=== PATIENT | female | born 1995 | race African-American/Black ===

== ENCOUNTER 2016-03-02 09:26 | Emergency (ER) | payer MEDICAID ==
[~2016-03-02] VITALS: Ht 170.2 cm; Wt 64.0 kg
[~2016-03-02 09:26] MED LIST: NORC5TAB PO; PROM25TA5 PO
[2016-03-02 09:27] VITALS: BP 118/62; PULSE 74; RESP 15; TEMP 98; O2SAT 96
[2016-03-02 09:38] VITALS: PULSE 74; RESP 17; TEMP 98.2
--- NOTE | 2016-03-02 09:57 | PD ---
HPI Chief Complaint: Abdominal Pain Time Seen by Provider: 09:31 Travel History International Travel<30 days: No Contact w/Intl Traveler<30days: No Traveled to known affect area: No History of Present Illness HPI The patient was seen and examined in the presence of the nurse. This patient complains of abdominal pain. Duration is 2 weeks. Severity is moderate. Location is epigastrium. Comes come and go and spells last 15 minutes and resolved without alleviating factors. Denies vomiting or diarrhea. No fever. No abdominal surgeries PFSH Past Medical History Developmental Delay: No Diminished Hearing: No Kidney Stones: Yes (2016) Musculoskeletal: Yes (scoliosis) Respiratory: Yes (ASTHMA A YOUTH ) Immunizations Current: Yes ?: Not LMP: 02/26/16 : 1 Para: 1 Past Surgical History Section: Yes Gynecologic Surgery: Yes (C SECTION ) Social History Alcohol Use: No Tobacco Use: No Substance Use: No Allergies-Medications (Allergen,Severity, Reaction): Coded Allergies: No Known Allergies (Verified , 03/02/16) Reported Meds & Prescriptions Reported Meds & Active Scripts Active No Active Prescriptions or Reported Medications Review of Systems General / Constitutional: No: Fever Eyes: No: Visual changes HENT: No: Headaches Cardiovascular: No: Chest Pain or Discomfort Respiratory: No: Shortness of Breath Gastrointestinal: Positive: Abdominal Pain Genitourinary: No: Dysuria Musculoskeletal: No: Pain Skin: No Rash Neurologic: No: Weakness Psychiatric: No: Depression Endocrine: No: Polydipsia Hematologic/Lymphatic: No: Easy Bruising Physical Exam Narrative GENERAL: Well-nourished, well-developed patient in no apparent distress. SKIN: Warm and dry. HEAD: Atraumatic. Normocephalic. EYES: Pupils equal and round. No scleral icterus. No injection or drainage. ENT: No nasal bleeding or discharge. Mucous membranes pink and moist. NECK: Trachea midline. No JVD. CARDIOVASCULAR: Regular rate and rhythm. No murmur appreciated. RESPIRATORY: No accessory muscle use. Clear to auscultation. Breath sounds equal bilaterally. GASTROINTESTINAL: Abdomen soft, non-tender, nondistended. Hepatic and splenic margins not palpable. MUSCULOSKELETAL: No obvious deformities. No clubbing. No cyanosis. No edema. NEUROLOGICAL: Awake and alert. No obvious cranial nerve deficits. Motor grossly within normal limits. Normal speech. PSYCHIATRIC: Appropriate mood and affect; insight and judgment normal. Data Data Last Documented VS Vital Signs Date Time Temp Pulse Resp B/P Pulse Ox O2 Delivery O2 Flow Rate FiO2 03/02/16 09:38 98.2 74 17 03/02/16 09:27 118/62 96 Orders Iv Access Insert/Monitor (03/02/16 09:54) Complete Blood Count With Diff (03/02/16 09:54) Comprehensive Metabolic Panel (03/02/16 09:54) Lipase (03/02/16 09:54) Ed Urine Pregnancytest Poc (03/02/16 09:54) Labs Laboratory Tests Test 03/02/16 09:00 White Blood Count 9.4 TH/MM3 Red Blood Count 4.83 MIL/MM3 Hemoglobin 11.3 GM/DL Hematocrit 33.7 % Mean Corpuscular Volume 69.6 FL Mean Corpuscular Hemoglobin 23.3 PG Mean Corpuscular Hemoglobin 33.5 % Concent Red Cell Distribution Width 16.5 % Platelet Count 378 TH/MM3 Mean Platelet Volume 7.3 FL Neutrophils (%) (Auto) 66.5 % Lymphocytes (%) (Auto) 24.1 % Monocytes (%) (Auto) 7.1 % Eosinophils (%) (Auto) 1.5 % Basophils (%) (Auto) 0.8 % Neutrophils # (Auto) 6.3 TH/MM3 Lymphocytes # (Auto) 2.3 TH/MM3 Monocytes # (Auto) 0.7 TH/MM3 Eosinophils # (Auto) 0.1 TH/MM3 Basophils # (Auto) 0.1 TH/MM3 CBC Comment AUTO DIFF Differential Comment AUTO DIFF CONFIRMED Platelet Estimate NORMAL Platelet Morphology Comment NORMAL Sodium Level 139 MEQ/L Potassium Level 3.6 MEQ/L Chloride Level 106 MEQ/L Carbon Dioxide Level 25.4 MEQ/L Anion Gap 8 MEQ/L Blood Urea Nitrogen 10 MG/DL Creatinine 0.64 MG/DL Estimat Glomerular Filtration 142 ML/MIN Rate Random Glucose 89 MG/DL Calcium Level 8.6 MG/DL Total Bilirubin 0.4 MG/DL Aspartate Amino Transf 13 U/L (AST/SGOT) Alanine Aminotransferase 19 U/L (ALT/SGPT) Alkaline Phosphatase 58 U/L Total Protein 8.2 GM/DL Albumin 3.9 GM/DL Lipase 89 U/L [facility] Medical Decision Making Medical Screen Exam Complete: Yes Emergency Medical Condition: Yes Medical Record Reviewed: Yes Differential Diagnosis Differential diagnosis includes pancreatitis, biliary colic, hepatitis, GERD, peptic ulcer disease. Narrative Course I have reviewed the patient's electronic medical record. Frequent visitor to the ER for minor complaints IV placed CBC shows mild anemia but normal white count Metabolic profile is normal LFTs are normal Lipase is normal Urine is negative Abdomen is soft and benign and nontender Recommended dietary modification and avoidance of certain things and trial of acid blocking medicine either Zantac or Prilosec The patient was advised to follow up with their physician and return if they worsen. Diagnosis Primary Impression: Epigastric pain Additional Instructions: The patient was advised to follow up with their physician and return if they worsen. Med/Other Pt SpecificInfo: Other Scripts No Active Prescriptions or Reported Meds Disposition: 01 DISCHARGE HOME Condition: Stable Kevon Nieto MD Mar 02, 2016 09:57
[2016-03-02 10:19] LABS: AUTOMATED NEUTROPHIL # 6.3 TH/MM3 (1.8-7.7); BASOPHIL # 0.1 TH/MM3 (0-0.2); BASOPHIL % 0.8 % (0.0-2.0); EOSINOPHIL # 0.1 TH/MM3 (0-0.4); EOSINOPHIL % 1.5 % (0.0-4.0); HEMATOCRIT 33.7 % (35.0-46.0); LYMPH % 24.1 % (9.0-44.0); LYMPHOCYTE # 2.3 TH/MM3 (1.0-4.8); MEAN CELL VOLUME 69.6 FL (80.0-100.0); MEAN CORPUSCULAR HEMOGLOBIN 23.3 PG (27.0-34.0); MEAN CORPUSCULAR HGB CONC 33.5 % (32.0-36.0); MONO % 7.1 % (0.0-8.0); NEUT % 66.5 % (16.0-70.0); PLATELET COUNT 378 TH/MM3 (150-450); RED BLOOD COUNT 4.83 MIL/MM3 (4.00-5.30); RED CELL DISTRIBUTION WIDTH 16.5 % (11.6-17.2); WHITE BLOOD COUNT 9.4 TH/MM3 (4.0-11.0)
[2016-03-02 10:24] LABS: HEMO FLAGS AUTO DIFF
[2016-03-02 10:34] LABS: ANION GAP 8 MEQ/L (5-15); AST (GOT) 13 U/L (15-37); BICARBONATE 25.4 MEQ/L (21.0-32.0); BLOOD UREA NITROGEN 10 MG/DL (7-18); CHLORIDE 106 MEQ/L (98-107); GLOMERULAR FILTRATION RATE 142 ML/MIN (>89); POTASSIUM 3.6 MEQ/L (3.5-5.1); SODIUM (NA) 139 MEQ/L (136-145)
[2016-03-02 10:37] LABS: ALKALINE PHOSPHATASE 58 U/L (45-117); ALT (GPT) 19 U/L (10-53); TOTAL BILIRUBIN ADULT 0.4 MG/DL (0.2-1.0)
[2016-03-02 11:31] LABS: SCAN/DIFF AUTO DIFF CONFIRMED
[2016-03-02 11:32] LABS: PLATELET ESTIMATE SMEAR NORMAL (NORMAL); PLATELET MORPHOLOGY NORMAL (NORMAL)
== END 2016-03-02 12:39 | disposition home or self-care (01) ==
LOC: NEPC 09:26
DX: R10.13 Epigastric pain (principal); D64.9 Anemia, unspecified
CPT/HCPCS: 80053; 83690; 84703; 85025; 99284

== ENCOUNTER 2016-05-23 16:17 | Emergency (ER) | payer MEDICAID ==
[~2016-05-23] VITALS: Ht 170.2 cm; Wt 67.0 kg
[2016-05-23 16:18] VITALS: BP 128/62; PULSE 99; RESP 20; TEMP 98.2; O2SAT 99
[2016-05-23 17:20] LABS: BACTERIA, URINE FEW /hpf; BLOOD, URINE MOD (NEG); COMMENT (UR) CULTURE INDICATED; CULTURE IF INDICATED CULTURE INDICATED; GLUCOSE,URINE NEG (NEG); KETONE, URINE NEG (NEG); MUCUS URINE FEW /lpf (OCC); NITRITE,URINE NEG (NEG); SQUAMOUS EPITHELIAL CELL URINE 2 /hpf (0-5); URINE COLOR YELLOW (YELLW/STRAW)
== END 2016-05-23 20:52 | disposition left against medical advice (07) ==
LOC: NED 16:17
DX: R10.30 Lower abdominal pain, unspecified (principal); R30.0 Dysuria; R31.9 Hematuria, unspecified; Z53.21 Procedure and treatment not carried out due to patient leaving prior to being seen by health care provider
CPT/HCPCS: 81001; 84703; 87077; 87086; 87186; 99281

== ENCOUNTER 2016-11-29 15:28 | Emergency (ER) | payer MEDICAID ==
[~2016-11-29] VITALS: Ht 170.2 cm; Wt 70.0 kg
[2016-11-29 15:30] VITALS: BP 135/61; PULSE 81; RESP 15; TEMP 98.5; O2SAT 99
[2016-11-29 16:11] LABS: BACTERIA, URINE RARE /hpf; BLOOD, URINE NEG (NEG); COMMENT (UR) CULT NOT INDICATED; CULTURE IF INDICATED CULT NOT INDICATED; GLUCOSE,URINE NEG (NEG); KETONE, URINE NEG (NEG); NITRITE,URINE NEG (NEG); PH, URINE 7.5 (5.0-8.5); SQUAMOUS EPITHELIAL CELL URINE 1 /hpf (0-5); URINE COLOR LIGHT-YELLOW (YELLW/STRAW)
--- NOTE | 2016-11-29 16:39 | PD ---
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 Patient states her last menstrual cycle was in September. She has taken 2 tests at home, one was positive in 1 was negative. She denies any vaginal discharge or bleeding. Denies any nausea or vomiting. No fever or chills. No urinary symptoms. No other symptoms to report. [facility] Past Medical History Medical History: Denies Significant Hx Developmental Delay: No Diminished Hearing: No Kidney Stones: Yes (2016) Musculoskeletal: Yes (scoliosis) Respiratory: Yes (ASTHMA A YOUTH ) Immunizations Current: Yes ?: Unknown : 1 Para: 1 Past Surgical History Section: Yes Gynecologic Surgery: Yes (C SECTION ) Social History Alcohol Use: No Tobacco Use: No Substance Use: No Allergies-Medications (Allergen,Severity, Reaction): Coded Allergies: No Known Allergies (Verified , 03/02/16) Reported Meds & Prescriptions Reported Meds & Active Scripts Active No Active Prescriptions or Reported Medications Review of Systems Except as stated in HPI: all other systems reviewed are Neg Physical Exam Narrative GENERAL: Well-nourished female patient, ambulatory and in no acute distress SKIN: Focused skin assessment warm/dry. HEAD: Atraumatic. Normocephalic. EYES: Pupils equal and round. No scleral icterus. No injection or drainage. ENT: No nasal bleeding or discharge. Mucous membranes pink and moist. NECK: Trachea midline. No JVD. CARDIOVASCULAR: Regular rate and rhythm. No murmur appreciated. RESPIRATORY: No accessory muscle use. Clear to auscultation. Breath sounds equal bilaterally. GASTROINTESTINAL: Abdomen soft, nondistended. Mild suprapubic tenderness to palpation.. Hepatic and splenic margins not palpable. GENITOURINARY: Normal external genitalia without lesions or erythema. Vaginal vault with thick white chunky discharge. Cervical os was closed white clear discharge.. No cervical motion tenderness. Uterus nontender and nonenlarged. Bilateral adnexa nontender without masses. MUSCULOSKELETAL: No obvious deformities. No clubbing. No cyanosis. No edema. NEUROLOGICAL: Awake and alert. No obvious cranial nerve deficits. Motor grossly within normal limits. Normal speech. PSYCHIATRIC: Appropriate mood and affect; insight and judgment normal. Data Data Last Documented VS Vital Signs Date Time Temp Pulse Resp B/P (MAP) Pulse Ox O2 Delivery O2 Flow Rate FiO2 11/29/16 15:30 98.5 81 15 135/61 (85) 99 Orders Orders Urinalysis - C+S If Indicated (11/29/16 15:38) Ed Urine Pregnancytest Poc (11/29/16 15:38) Wet Prep Profile (11/29/16 16:38) Gc And Chlamydia Pcr (11/29/16 16:38) Ceftriaxone Inj (Rocephin Inj) (11/29/16 19:00) Lidocaine 1% Inj (50 Ml) (Xylocaine 1% I (11/29/16 19:00) Azithromycin (Zithromax) (11/29/16 19:00) Labs Laboratory Tests Test 11/29/16 15:43 11/29/16 18:45 Urine Color LIGHT-YELLOW Urine Turbidity CLEAR Urine pH 7.5 Urine Specific Thurman 1.007 Urine Protein NEG mg/dL Urine Glucose (UA) NEG mg/dL Urine Ketones NEG mg/dL Urine Occult Blood NEG Urine Nitrite NEG Urine Bilirubin NEG Urine Urobilinogen LESS THAN 2.0 MG/DL Urine Leukocyte Esterase MOD Urine RBC 1 /hpf Urine WBC 1 /hpf Urine Squamous Epithelial Cells 1 /hpf Urine Bacteria RARE /hpf Microscopic Urinalysis Comment CULT NOT INDICATED MDM Medical Decision Making Medical Screen Exam Complete: Yes Emergency Medical Condition: Yes Medical Record Reviewed: Yes Differential Diagnosis UTI versus STD versus versus BV versus vaginal candidiasis Narrative Course 21-year-old female presents from his partner for evaluation. Patient appears without distress. She has mild suprapubic tenderness to palpation. In the vaginal vault there is a thick white chunky discharge. Cervical os is closed. No bleeding. It is nonfriable. Urine is negative. 1855 patient's wet prep and GC PCR are still pending. I will treat her empirically and discharge her. Diagnosis Primary Impression: Vaginal discharge Additional Impression: Lower abdominal pain Referrals: Ict Teacher Primary Care Physician Patient Instructions: General Instructions, Safe Sex (ED) Additional Instructions: It is important that you utilize condom prophylaxis Follow-up primary care provider Seek gynecology evaluation Return immediately with any acute worsening symptoms Med/Other Pt SpecificInfo: No Change to Meds Scripts No Active Prescriptions or Reported Meds Disposition: 01 DISCHARGE HOME Condition: Stable Sally Haywood Nov 29, 2016 16:39
[2016-11-29] MEDS ORDERED: LIDOCAINE HCL 1% 50 ML VIAL XX ONE (19:00)
[2016-11-29] MEDS ORDERED: cefTRIAXone 250 MG VIAL IM ONE (19:00)
[2016-11-29] MEDS ORDERED: AZITHROMYCIN 250 MG TAB PO ONE (19:00)
[2016-11-29 23:25] LABS: CHLAMYDIA PCR NOT DETECTED (NOT DETECT); NEISSERIA PCR NOT DETECTED (NOT DETECT)
== END 2016-11-29 19:14 | disposition home or self-care (01) ==
LOC: NEPD 15:28
DX: N89.8 Other specified noninflammatory disorders of vagina (principal)
CPT/HCPCS: 81001; 84703; 87210; 87491; 87591; 96372; 99284; J0696